=== PATIENT | female | born 1980 | race Caucasian/White ===

== ENCOUNTER 2017-08-13 11:28 | Emergency (ER) | payer SELFPAY ==
[~2017-08-13 11:28] MED LIST: AMIT10; AMOCLA875 PO; Augmentin 875-1 EACH PO; CRUTCH3 USE; CYCL10 PO; Cyclobenzaprine5 MG PO; ERYT.5TO OD; HYDACE5 PO; IBUP800 PO; MEDR10 PO; MELA3 PO; NAPR375 PO; NAPR500 PO; PROACE100 PO; PROM25 PO; RXHYDACE PO; VENL75ER; Zofran Odt4 MG SL
[2017-08-14] MEDS ORDERED: Pepcid20 MG PO (19:11)
[2017-08-14] MEDS ORDERED: Amoxicillin500 MG PO (19:11)
[2017-08-14] MEDS ORDERED: Zofran8 MG PO (19:11)
[2017-08-14] MEDS ORDERED: IBUP600 PO (19:11)
== END 2017-08-13 12:22 | disposition left against medical advice (07) ==
LOC: ER 11:28
DX: Z53.21 Procedure and treatment not carried out due to patient leaving prior to being seen by health care provider (principal)

== ENCOUNTER 2017-08-14 14:43 | Emergency (ER) | payer OTHER ==
[~2017-08-14] VITALS: Ht 170.2 cm; Wt 63.5 kg
[2017-08-14 15:48] LABS: BASOPHILS ABSOLUTE AUTO 0.06 K/mm3 (0.00-0.23); BASOPHILS PERCENT AUTO 1 % (0-2); EOSINOPHILS PERCENT AUTO 0 % (0-6); Hematocrit 46.6 % (33.0-51.0); Hemoglobin 15.4 g/dL (11.5-16.0); IMMATURE GRAN ABSOLUTE AUTO 0.03 K/mm3 (0.00-0.10); IMMATURE GRAN PERCENT AUTO 0 % (0-1); LYMPHOCYTES ABSOLUTE AUTO 1.71 K/mm3 (0.84-5.20); LYMPHOCYTES PERCENT AUTO 19 % (21-46); MONOCYTES ABSOLUTE AUTO 0.64 K/mm3 (0.16-1.47); MONOCYTES PERCENT AUTO 7 % (4-13); Mean Corpuscular HGB 30.6 pg (26.0-34.0); Mean Corpuscular Volume 93 fL (80-100); Mean Platelet Volume 9.9 fL (9.1-12.4); NEUTROPHILS ABSOLUTE AUTO 6.79 K/mm3 (1.96-9.15); NEUTROPHILS PERCENT AUTO 74 % (41-73); Platelet Count 268 K/mm3 (150-400); RDW Coefficient Variation 13.7 % (11.7-14.2); RDW Standard Deviation 46.4 fL (35.1-46.3); Red Blood Cell Count 5.03 M/mm3 (3.80-5.20); White Blood Cell Count 9.23 K/mm3 (4.00-11.30)
[2017-08-14 16:23] LABS: Alanine Aminotransfer (ALT/SGP 27 U/L (12-78); Alk Phos 80 U/L (50-136); Anion Gap 9 mmol/L (6-16); Aspartate Aminotrans (AST/SGOT 31 U/L (12-37); Bilirubin, Total 0.5 mg/dL (0.1-1.0); Blood Urea Nitrogen 9 mg/dL (8-24); Bun/Creatinine Ratio 12.9 (12.0-20.0); CO2, Blood 26 mmol/L (21-32); Calcium, Blood 8.6 mg/dL (8.5-10.1); Chloride, Blood 106 mmol/L (98-108); Glomerular Filtration Rate >60 (60-); Glucose, Blood 80 mg/dL (70-99); Potassium, Blood 3.6 mmol/L (3.5-5.5); Sodium, Blood 141 mmol/L (136-145)
[2017-08-14 16:38] LABS: Source, Urine Clean Catch
[2017-08-14 17:01] LABS: Bilirubin, Urine Neg (Neg); Blood, Urine Neg (Neg); Glucose Qualitative, Urine Neg (Neg); Ketones, Urine 2+ (Neg); Leukocyte Esterase, Urine 1+ (Neg); Nitrite, Urine Neg (Neg); Protein, Urine 1+ (Neg); Urobilinogen, Urine 1+ (Normal)
[2017-08-14 17:05] LABS: Appearance, Urine Clear (Clear); Color, Urine Yellow (P-Yellow)
[2017-08-14 17:06] LABS: Bacteria Rare /hpf; Red Blood Cells, Urine 0-2 /hpf (0-2); Squamous Epithelial Cells Rare /hpf (Few)
[2017-08-14] MEDS ORDERED: Pepcid20 MG PO (19:11)
[2017-08-14] MEDS ORDERED: IBUP600 PO (19:11)
[2017-08-14] MEDS ORDERED: Zofran8 MG PO (19:11)
[2017-08-14] MEDS ORDERED: Amoxicillin500 MG PO (19:11)
[2017-08-14 19:27] LABS: U Amphetamine Screen Not Detected; U Barbituate Screen Not Detected; U Benzodiazapine Screen Not Detected; U Buprenorphine Screen Not Detected; U Cannabinoids Screen DETECTED; U Cocaine Screen Not Detected; U Methadone Screen Not Detected; U Methamphetamine Screen Not Detected; U Opiates Screen Not Detected; U Oxycodone Screen Not Detected; U Phencyclidine Screen Not Detected; U Propoxyphene Screen Not Detected
== END 2017-08-14 19:35 | disposition home or self-care (01) ==
LOC: ER 14:43
PROVIDERS: Emergency Medicine; Physician Assistant
DX: R10.12 Left upper quadrant pain (principal); Z88.8 Allergy status to other drugs, medicaments and biological substances; F17.200 Nicotine dependence, unspecified, uncomplicated
CPT/HCPCS: 36415; 71046; 80053; 81001; 81025; 83690; 85025; 87086; 96361; 96374; 96375; 96376; 99284; G0480; J0696; J1170; J2405; J7030

== ENCOUNTER 2018-02-27 15:27 | Emergency (ER) | payer OTHER ==
[~2018-02-27] VITALS: Ht 170.2 cm; Wt 63.5 kg
[~2018-02-27 15:27] MED LIST changes: +Amoxicillin500 MG PO; +IBUP600 PO; +Pepcid20 MG PO; +Zofran8 MG PO
[2018-02-27] MEDS ORDERED: Amoxil400 MG/5 M PO (16:23)
== END 2018-02-27 16:34 | disposition home or self-care (01) ==
LOC: ER 15:27
DX: J02.0 Streptococcal pharyngitis (principal); F17.210 Nicotine dependence, cigarettes, uncomplicated; Z88.8 Allergy status to other drugs, medicaments and biological substances
CPT/HCPCS: 87430; 99282; J1100

== ENCOUNTER 2018-08-03 10:18 | Emergency (ER) | payer OTHER ==
[~2018-08-03] VITALS: Ht 170.2 cm; Wt 63.5 kg
[~2018-08-03 10:18] MED LIST changes: +Amoxil400 MG/5 M PO
[2018-08-03 10:55] LABS: PCO2 Arterial 27.3 mmHg (35-45); PO2 Arterial 105 mmHg (80-100)
== END 2018-08-03 12:51 ==
LOC: ER 10:18
PROVIDERS: Emergency Medicine
DX: T59.811A Toxic effect of smoke, accidental (unintentional), initial encounter (principal); J68.9 Unspecified respiratory condition due to chemicals, gases, fumes and vapors; R05 Cough; R07.89 Other chest pain; Z88.8 Allergy status to other drugs, medicaments and biological substances; F17.210 Nicotine dependence, cigarettes, uncomplicated
CPT/HCPCS: 36600; 71046; 82375; 82803; 93005; 93010; 99285-25

== ENCOUNTER 2018-10-19 08:04 | Emergency (ER) | payer OTHER ==
[~2018-10-19] VITALS: Ht 170.2 cm; Wt 65.8 kg
[2018-10-19 08:48] LABS: Source, Urine Clean Catch
[2018-10-19 08:55] LABS: Bilirubin, Urine Neg (Neg); Blood, Urine Neg (Neg); Glucose Qualitative, Urine Neg (Neg); Ketones, Urine Neg (Neg); Leukocyte Esterase, Urine Neg (Neg); Nitrite, Urine Neg (Neg); Protein, Urine Neg (Neg); Specific Gravity, Urine 1.005 (1.003-1.022); Urobilinogen, Urine NORM (Normal); pH, Urine 6.5 (5.0-8.0)
[2018-10-19 08:58] LABS: Appearance, Urine Clear (Clear); Color, Urine Pale Yellow (P-Yellow)
[2018-10-19 08:59] LABS: BASOPHILS ABSOLUTE AUTO 0.08 K/mm3 (0.00-0.23); BASOPHILS PERCENT AUTO 1 % (0-2); EOSINOPHILS PERCENT AUTO 0 % (0-6); Hematocrit 42.8 % (33.0-51.0); Hemoglobin 14.1 g/dL (11.5-16.0); IMMATURE GRAN ABSOLUTE AUTO 0.03 K/mm3 (0.00-0.10); IMMATURE GRAN PERCENT AUTO 0 % (0-1); LYMPHOCYTES ABSOLUTE AUTO 1.93 K/mm3 (0.84-5.20); LYMPHOCYTES PERCENT AUTO 26 % (21-46); MONOCYTES ABSOLUTE AUTO 0.66 K/mm3 (0.16-1.47); MONOCYTES PERCENT AUTO 9 % (4-13); Mean Corpuscular HGB 30.8 pg (26.0-34.0); Mean Corpuscular HGB Conc 32.9 g/dL (31.5-36.5); Mean Corpuscular Volume 93 fL (80-100); Mean Platelet Volume 10.5 fL (9.1-12.4); NEUTROPHILS ABSOLUTE AUTO 4.77 K/mm3 (1.96-9.15); NEUTROPHILS PERCENT AUTO 64 % (41-73); Platelet Count 259 K/mm3 (150-400); RDW Coefficient Variation 13.2 % (11.7-14.2); Red Blood Cell Count 4.58 M/mm3 (3.80-5.20); White Blood Cell Count 7.47 K/mm3 (4.00-11.30)
[2018-10-19 09:12] LABS: Alanine Aminotransfer (ALT/SGP 29 U/L (12-78); Albumin, Blood 3.8 g/dL (3.4-5.0); Albumin/Globulin Ratio 1.3 (0.8-1.8); Alk Phos 59 U/L (50-136); Anion Gap 4 mmol/L (6-16); Aspartate Aminotrans (AST/SGOT 21 U/L (12-37); Bilirubin, Total 0.2 mg/dL (0.1-1.0); Blood Urea Nitrogen 17 mg/dL (8-24); Bun/Creatinine Ratio 31.4 (12.0-20.0); CO2, Blood 25 mmol/L (21-32); Calcium, Blood 8.5 mg/dL (8.5-10.1); Chloride, Blood 111 mmol/L (98-108); Creatinine, Blood 0.54 mg/dL (0.40-1.00); Glomerular Filtration Rate >60 (60-); Glucose, Blood 102 mg/dL (70-99); Potassium, Blood 4.1 mmol/L (3.5-5.5); Sodium, Blood 140 mmol/L (136-145); Total Protein, Blood 6.8 g/dL (6.4-8.2)
[2018-10-19] MEDS ORDERED: Cipro500 MG PO (10:13)
[2018-10-19] MEDS ORDERED: Flagyl500 MG PO (10:13)
[2018-10-19] MEDS ORDERED: Ultram50 MG PO (10:20)
== END 2018-10-19 10:22 | disposition home or self-care (01) ==
LOC: ER 08:04
PROVIDERS: Emergency Medicine
DX: K52.9 Noninfective gastroenteritis and colitis, unspecified (principal); F17.210 Nicotine dependence, cigarettes, uncomplicated; Z88.8 Allergy status to other drugs, medicaments and biological substances
CPT/HCPCS: 74177; 80053; 81003; 83690; 85025; 96361-59; 96374-59; 96375-59; 99284-25; C9113; J2405; J7030; Q9967

== ENCOUNTER → 2019-01-08 | Outpatient (CLI) | payer OTHER ==
[~2019-01-08] MED LIST changes: +Cipro500 MG PO; +Flagyl500 MG PO; +Ultram50 MG PO
[2019-01-09 11:11] LABS: Adenovirus F 40/41 Not Detected (NOT DETECT); Astrovirus Not Detected (NOT DETECT); Campylobacter Sp Not Detected (NOT DETECT); Cryptosporidium Not Detected (NOT DETECT); Cyclospora Cayetanensis Not Detected (NOT DETECT); E. Coli O157 Not Detected (NOT DETECT); Entamoeba Histolytica Not Detected (NOT DETECT); Enteroaggregative E. coli-EAEC Not Detected (NOT DETECT); Enteropathogenic E. coli-EPEC Not Detected (NOT DETECT); Enterotoxigenic E. coli-ETEC Not Detected (NOT DETECT); Giardia Lamblia Not Detected (NOT DETECT); Norovirus GI/GII Not Detected (NOT DETECT); Plesiomonas Shigelloides Not Detected (NOT DETECT); Rotavirus A Not Detected (NOT DETECT); Salmonella Sp Not Detected (NOT DETECT); Sapovirus Not Detected (NOT DETECT); Shiga Toxin-prod E. coli-STEC Not Detected (NOT DETECT); Shigella/Enteroin E. coli-EIEC Not Detected (NOT DETECT); Vibrio Cholerae Not Detected (NOT DETECT); Vibrio Sp Not Detected (NOT DETECT); Yersinia Enterocolitica Not Detected (NOT DETECT)
== END | disposition home or self-care (01) ==
LOC: LAB SHORT 13:30 → LAB 13:30 → LAB FUT 12-15 16:35
PROVIDERS: Student in an Organized Health Care Education/Training Program
DX: R10.9 Unspecified abdominal pain (principal); R19.7 Diarrhea, unspecified
CPT/HCPCS: 87177; 87209; 87507

== ENCOUNTER 2019-01-09 08:34 | Day surgery (SDC) | payer OTHER ==
[~2019-01-09] VITALS: Ht 170.2 cm; Wt 69.2 kg
== END 2019-01-09 11:16 | disposition home or self-care (01) ==
LOC: ORSCSDS 08:34
PROVIDERS: Student in an Organized Health Care Education/Training Program
PROC: 0DBF8ZX Excision of Right Large Intestine, Via Natural or Artificial Opening Endoscopic, Diagnostic (ICD-10-PCS; principal; 2019-01-09 09:45)
PROC: 0DB98ZX Excision of Duodenum, Via Natural or Artificial Opening Endoscopic, Diagnostic (ICD-10-PCS; principal; 2019-01-09 09:45)
PROC: 0DB58ZX Excision of Esophagus, Via Natural or Artificial Opening Endoscopic, Diagnostic (ICD-10-PCS; principal; 2019-01-09 09:45)
PROC: 0DBB8ZX Excision of Ileum, Via Natural or Artificial Opening Endoscopic, Diagnostic (ICD-10-PCS; principal; 2019-01-09 09:45)
PROC: 0DB68ZX Excision of Stomach, Via Natural or Artificial Opening Endoscopic, Diagnostic (ICD-10-PCS; principal; 2019-01-09 09:45)
PROC: 0DBG8ZX Excision of Left Large Intestine, Via Natural or Artificial Opening Endoscopic, Diagnostic (ICD-10-PCS; principal; 2019-01-09 09:45)
DX: R10.9 Unspecified abdominal pain (principal); R19.7 Diarrhea, unspecified; K20.9 Esophagitis, unspecified; K29.70 Gastritis, unspecified, without bleeding; K64.8 Other hemorrhoids; K57.30 Diverticulosis of large intestine without perforation or abscess without bleeding; K44.9 Diaphragmatic hernia without obstruction or gangrene; K62.89 Other specified diseases of anus and rectum; F17.210 Nicotine dependence, cigarettes, uncomplicated
CPT/HCPCS: 88305; 88342; J2704; J7120

== ENCOUNTER → 2019-01-27 | Outpatient (CLI) | payer OTHER | END | disposition home or self-care (01) | LOC: LAB SHORT 14:22 → LAB 14:22 | DX: R10.9 Unspecified abdominal pain (principal); R19.7 Diarrhea, unspecified | CPT/HCPCS: 87493 ==

== ENCOUNTER 2020-04-15 08:39 | Day surgery (SDC) | payer OTHER ==
[~2020-04-15] VITALS: Ht 170.2 cm; Wt 74.1 kg
[~2020-04-15 08:39] MED LIST changes: +Carafate1 GM/10 ML PO; +Halcion0.25 MG PO; +ONDA4ODT MM; +Prilosec Otc20 MG PO
[2020-04-15] MEDS ORDERED: Children's15 MG/5 M2 PO (09:07)
--- NOTE | 2020-04-15 09:23 | NUR ---
04/15/20 0923 Kendy Alvarse FIRST IV IN RIGHT HAND BLEW VEIN SECOND IV IN RIGHT WRIST WORKED
== END 2020-04-15 10:45 | disposition home or self-care (01) ==
LOC: ORSCSDS 08:39
PROVIDERS: Student in an Organized Health Care Education/Training Program
PROC: 0DBP8ZX Excision of Rectum, Via Natural or Artificial Opening Endoscopic, Diagnostic (ICD-10-PCS; principal; 2020-04-15 10:00)
PROC: 0DBE8ZX Excision of Large Intestine, Via Natural or Artificial Opening Endoscopic, Diagnostic (ICD-10-PCS; principal; 2020-04-15 10:00)
DX: K52.9 Noninfective gastroenteritis and colitis, unspecified (principal); R19.7 Diarrhea, unspecified; R10.9 Unspecified abdominal pain; F17.210 Nicotine dependence, cigarettes, uncomplicated
CPT/HCPCS: 88305; J2704; J7120

== ENCOUNTER 2021-01-17 01:31 | Emergency (ER) | payer OTHER ==
[~2021-01-17] VITALS: Ht 170.2 cm; Wt 70.3 kg
[~2021-01-17 01:31] MED LIST changes: +Children's15 MG/5 M2 PO
[2021-01-17 03:47] LABS: BASOPHILS PERCENT AUTO 1 % (0-2); EOSINOPHILS PERCENT AUTO 0 % (0-6); Hematocrit 49.1 % (33.0-51.0); Hemoglobin 15.9 g/dL (11.5-16.0); IMMATURE GRAN ABSOLUTE AUTO 0.16 K/mm3 (0.00-0.10); IMMATURE GRAN PERCENT AUTO 1 % (0-1); LYMPHOCYTES ABSOLUTE AUTO 0.71 K/mm3 (0.84-5.20); LYMPHOCYTES PERCENT AUTO 4 % (21-46); MONOCYTES ABSOLUTE AUTO 1.33 K/mm3 (0.16-1.47); MONOCYTES PERCENT AUTO 7 % (4-13); Mean Corpuscular HGB 32.8 pg (26.0-34.0); Mean Corpuscular HGB Conc 32.4 g/dL (31.5-36.5); Mean Corpuscular Volume 101 fL (80-100); Mean Platelet Volume 10.9 fL (9.1-12.4); NEUTROPHILS ABSOLUTE AUTO 16.63 K/mm3 (1.96-9.15); NEUTROPHILS PERCENT AUTO 88 % (41-73); Platelet Count 305 K/mm3 (150-400); RDW Coefficient Variation 13.3 % (11.7-14.2); RDW Standard Deviation 49.9 fL (35.1-46.3); Red Blood Cell Count 4.85 M/mm3 (3.80-5.20); White Blood Cell Count 18.93 K/mm3 (4.00-11.30)
[2021-01-17 04:10] LABS: Alanine Aminotransfer (ALT/SGP 42 U/L (12-78); Albumin, Blood 5.3 g/dL (3.4-5.0); Albumin/Globulin Ratio 1.2 (0.8-1.8); Alk Phos 98 U/L (50-136); Anion Gap 23 mmol/L (6-16); Aspartate Aminotrans (AST/SGOT 41 U/L (12-37); Bilirubin, Total 0.8 mg/dL (0.1-1.0); Blood Urea Nitrogen 13 mg/dL (8-24); Bun/Creatinine Ratio 15.3 (12.0-20.0); CO2, Blood 8 mmol/L (21-32); Calcium, Blood 9.3 mg/dL (8.5-10.1); Chloride, Blood 103 mmol/L (98-108); Creatinine, Blood 0.85 mg/dL (0.40-1.00); Globulin, Blood 4.4 g/dL (2.2-4.0); Glomerular Filtration Rate >60 (60-); Glucose, Blood 156 mg/dL (70-99); Sodium, Blood 134 mmol/L (136-145); Total Protein, Blood 9.7 g/dL (6.4-8.2)
[2021-01-17 06:34] LABS: Troponin I <0.015 ng/mL (0.000-0.040)
[2021-01-17 08:49] LABS: U Amphetamine Screen Not Detected; U Barbituate Screen Not Detected; U Benzodiazapine Screen Not Detected; U Buprenorphine Screen Not Detected; U Cannabinoids Screen DETECTED; U Cocaine Screen Not Detected; U Methadone Screen Not Detected; U Methamphetamine Screen Not Detected; U Opiates Screen Not Detected; U Oxycodone Screen Not Detected; U Phencyclidine Screen Not Detected; U Propoxyphene Screen Not Detected
== END 2021-01-17 09:33 | disposition home or self-care (01) ==
LOC: ER 01:31
PROVIDERS: Emergency Medicine; Student in an Organized Health Care Education/Training Program
DX: E86.0 Dehydration (principal); R10.13 Epigastric pain; R11.2 Nausea with vomiting, unspecified; R50.9 Fever, unspecified; F17.210 Nicotine dependence, cigarettes, uncomplicated; Z79.899 Other long term (current) drug therapy; Z88.8 Allergy status to other drugs, medicaments and biological substances
CPT/HCPCS: 71260; 74177; 80053; 83690; 84484; 85025; 85379; 93005; 93010; 96374-59; 96375-59; 99284-25; J1200; J1790; J1885; J7030; Q9967

== ENCOUNTER 2021-01-28 07:06 | Day surgery (SDC) | payer OTHER ==
[~2021-01-28] VITALS: Ht 170.2 cm; Wt 74.9 kg
== END 2021-01-28 09:01 | disposition home or self-care (01) ==
LOC: ORSCSDS 07:06
PROVIDERS: Student in an Organized Health Care Education/Training Program
PROC: 0DB68ZX Excision of Stomach, Via Natural or Artificial Opening Endoscopic, Diagnostic (ICD-10-PCS; principal; 2021-01-28 08:15)
PROC: 0DB98ZX Excision of Duodenum, Via Natural or Artificial Opening Endoscopic, Diagnostic (ICD-10-PCS; principal; 2021-01-28 08:15)
PROC: 0DB58ZX Excision of Esophagus, Via Natural or Artificial Opening Endoscopic, Diagnostic (ICD-10-PCS; principal; 2021-01-28 08:15)
DX: K21.00 Gastro-esophageal reflux disease with esophagitis, without bleeding (principal); K57.30 Diverticulosis of large intestine without perforation or abscess without bleeding; K44.9 Diaphragmatic hernia without obstruction or gangrene; Z79.899 Other long term (current) drug therapy
CPT/HCPCS: 88305; 88312; 88342; J2704; J7120

== ENCOUNTER 2021-04-14 12:09 | Emergency (ER) | payer OTHER ==
[~2021-04-14] VITALS: Ht 170.2 cm; Wt 68.0 kg
[2021-04-14] MEDS ORDERED: PHENERGAN25 MG PR (13:04)
[2021-04-15] MEDS ORDERED: Ativan1 MG SL (17:02)
[2021-04-15] MEDS ORDERED: HYDHCL25 PO (17:02)
[2021-04-15] MEDS ORDERED: PHENERGAN25 MG PR (17:02)
== END 2021-04-14 13:06 | disposition home or self-care (01) ==
LOC: ER 12:09
DX: U07.1 COVID-19 (principal); Z88.8 Allergy status to other drugs, medicaments and biological substances; Z79.899 Other long term (current) drug therapy; F17.210 Nicotine dependence, cigarettes, uncomplicated
CPT/HCPCS: 99282

== ENCOUNTER 2021-04-15 09:42 | Emergency (ER) | payer OTHER ==
[~2021-04-15] VITALS: Ht 170.2 cm; Wt 68.0 kg
[~2021-04-15 09:42] MED LIST changes: +PHENERGAN25 MG PR
[2021-04-15 12:37] LABS: Anion Gap 20 mmol/L (6-16); Beta HCG, Quantitative, Serum <1 mIU/mL (0-3); Blood Urea Nitrogen 23 mg/dL (8-24); Bun/Creatinine Ratio 18.3 (12.0-20.0); CO2, Blood 13 mmol/L (21-32); Calcium, Blood 10.4 mg/dL (8.5-10.1); Chloride, Blood 99 mmol/L (98-108); Creatinine, Blood 1.26 mg/dL (0.40-1.00); Glomerular Filtration Rate 46 (60-); Glucose, Blood 164 mg/dL (70-99); Magnesium, Blood 2.7 mg/dL (1.6-2.4); Potassium, Blood 4.6 mmol/L (3.5-5.5); Sodium, Blood 132 mmol/L (136-145)
[2021-04-15 13:38] LABS: U Amphetamine Screen Not Detected; U Barbituate Screen Not Detected; U Benzodiazapine Screen Not Detected; U Buprenorphine Screen Not Detected; U Cannabinoids Screen DETECTED; U Cocaine Screen Not Detected; U Methadone Screen Not Detected; U Methamphetamine Screen Not Detected; U Opiates Screen Not Detected; U Oxycodone Screen Not Detected; U Phencyclidine Screen Not Detected; U Propoxyphene Screen Not Detected
[2021-04-15 15:00] LABS: Calcium, Ionized (POC) 1.15 mmol/L (1.10-1.46); Chloride (POC) 106 mmol/L (98-108); Creatinine (POC) 0.8 mg/dL (0.6-1.0); Glucose (ISTAT POC) 114 mg/dL (70-99); Hemoglobin (POC) 13.9 g/dL (12.0-16.0); Potassium (POC) 4.2 mmol/L (3.5-5.5); Sodium (POC) 136 mmol/L (135-148); Total CO2 (POC) 14 mmol/L (21-32)
[2021-04-15 15:22] LABS: Bicarbonate Venous 18.8 mmol/L (24.0-30.0); PCO2 Venous 24.7 mmHg (38-42); PO2 Venous 102 mmHg (38-42); pH Blood Venous 7.41 (7.34-7.37)
[2021-04-15 16:52] LABS: Anion Gap 13 mmol/L (6-16); Blood Urea Nitrogen 18 mg/dL (8-24); Bun/Creatinine Ratio 23.9 (12.0-20.0); CO2, Blood 16 mmol/L (21-32); Calcium, Blood 8.9 mg/dL (8.5-10.1); Chloride, Blood 107 mmol/L (98-108); Creatinine, Blood 0.75 mg/dL (0.40-1.00); Glomerular Filtration Rate >60 (60-); Glucose, Blood 110 mg/dL (70-99); Potassium, Blood 4.3 mmol/L (3.5-5.5); Sodium, Blood 136 mmol/L (136-145)
[2021-04-15] MEDS ORDERED: PHENERGAN25 MG PR (17:02)
[2021-04-15] MEDS ORDERED: HYDHCL25 PO (17:02)
[2021-04-15] MEDS ORDERED: Ativan1 MG SL (17:02)
== END 2021-04-15 17:30 | disposition home or self-care (01) ==
LOC: ER 09:42
PROVIDERS: Emergency Medicine
DX: R10.9 Unspecified abdominal pain (principal); R11.2 Nausea with vomiting, unspecified; U07.1 COVID-19; F17.210 Nicotine dependence, cigarettes, uncomplicated; Z88.8 Allergy status to other drugs, medicaments and biological substances; Z79.899 Other long term (current) drug therapy
CPT/HCPCS: 36415; 80047; 80048; 82803; 83735; 84702; 85014; 96374; 96375; 99284-25; J1200; J2060; J2405; J2765; J7030; J7120

== ENCOUNTER → 2021-10-31 | Outpatient (CLI) | payer OTHER ==
[~2021-10-31] MED LIST changes: +Ativan1 MG SL; +HYDHCL25 PO
[2021-11-04 05:11] LABS: COTININE Negative ng/mL (Cutoff=300)
== END | disposition home or self-care (01) ==
LOC: LAB 15:37 → LAB SHORT 15:37
PROVIDERS: Orthopaedic Surgery
DX: Z01.812 Encounter for preprocedural laboratory examination (principal); S83.511D Sprain of anterior cruciate ligament of right knee, subsequent encounter

== ENCOUNTER 2021-11-15 18:21 | Emergency (ER) | payer OTHER ==
[~2021-11-15] VITALS: Ht 170.2 cm; Wt 77.1 kg
== END 2021-11-15 21:43 | disposition home or self-care (01) ==
LOC: ER 18:21
DX: S92.344A Nondisplaced fracture of fourth metatarsal bone, right foot, initial encounter for closed fracture (principal); S92.334A Nondisplaced fracture of third metatarsal bone, right foot, initial encounter for closed fracture; F17.210 Nicotine dependence, cigarettes, uncomplicated; Z88.8 Allergy status to other drugs, medicaments and biological substances; Z79.899 Other long term (current) drug therapy
CPT/HCPCS: 29515; 73630; 99283-25; A9270

== ENCOUNTER 2021-12-24 08:51 | Day surgery (SDC) | payer OTHER ==
[~2021-12-24] VITALS: Ht 170.2 cm; Wt 74.3 kg
[2021-12-24] MEDS ORDERED: GABA300 PO (09:47)
[2021-12-24] MEDS ORDERED: TIZA4 PO (09:48)
[2021-12-24] MEDS ORDERED: Bentyl20 MG PO (09:48)
--- NOTE | 2021-12-24 11:07 | NUR ---
12/24/21 1107 Angle Burgess 1 MG EPI ADDED TO THE FIRST BAG OF LR FOR IRRIGATION PER ORDER. BUPIVACAINE 0.5% 30 MLS MIXED W/ EPI 0.25ML PER ORDER TO MAKE BUPIVACAINE 0.5% 1:200,000 FOR INJECTION AT OPSITE BY DR MARCELO.
--- NOTE | 2021-12-24 12:13 | NUR ---
12/24/21 1213 TJ VERNON 25MCG FENTANYL IV PUSH FOR PAIN 11/25
== END 2021-12-24 13:05 | disposition home or self-care (01) ==
LOC: ORSCSDS 08:51
PROVIDERS: Orthopaedic Surgery
PROC: 0SQC4ZZ Repair Right Knee Joint, Percutaneous Endoscopic Approach (ICD-10-PCS; principal; 2021-12-24 10:15)
DX: S83.241A Other tear of medial meniscus, current injury, right knee, initial encounter (principal); S83.511A Sprain of anterior cruciate ligament of right knee, initial encounter; Z79.899 Other long term (current) drug therapy; Z87.891 Personal history of nicotine dependence; Z86.16 Personal history of COVID-19
CPT/HCPCS: A9270; C1713; J0171; J0690; J1100; J1885; J2250; J2405; J2704; J3010; J7120

== ENCOUNTER 2022-04-01 08:03 | Day surgery (SDC) | payer OTHER ==
[~2022-04-01] VITALS: Ht 170.2 cm; Wt 80.7 kg
[~2022-04-01 08:03] MED LIST changes: +Bentyl20 MG PO; +GABA300 PO; +TIZA4 PO
--- NOTE | 2022-04-01 10:29 | NUR ---
04/01/22 1029 Angle Burgess 30 MG EPI USED TO SOAK PLEDGETS FOR PACKING PER ORDER.
--- NOTE | 2022-04-01 11:36 | NUR ---
04/01/22 1136 PRISCILLA MOSELEY PT UP TO BATHROOM TO VOID URINE/ SBA IN WC
== END 2022-04-01 12:30 | disposition home or self-care (01) ==
LOC: ORSCSDS 08:03
PROVIDERS: Otolaryngology
PROC: 0HN Skin and Breast, Release (ICD-10-PCS; principal; 2022-04-01 09:15)
DX: J34.89 Other specified disorders of nose and nasal sinuses (principal); Z87.891 Personal history of nicotine dependence; K21.9 Gastro-esophageal reflux disease without esophagitis; Z79.899 Other long term (current) drug therapy
CPT/HCPCS: J0171; J1100; J1885; J2405; J2704; J3010; J7040; J7120

== ENCOUNTER 2022-05-31 14:53 | Emergency (ER) | payer OTHER ==
[~2022-05-31] VITALS: Ht 170.2 cm; Wt 74.8 kg
== END 2022-05-31 16:24 | disposition home or self-care (01) ==
LOC: ER 14:53
DX: M25.561 Pain in right knee (principal); G89.29 Other chronic pain; F17.210 Nicotine dependence, cigarettes, uncomplicated; V89.2XXA Person injured in unspecified motor-vehicle accident, traffic, initial encounter
CPT/HCPCS: 73562-RT

== ENCOUNTER → 2022-10-09 | Outpatient (CLI) | payer OTHER ==
[2022-10-09 15:17] LABS: BASOPHILS ABSOLUTE AUTO 0.06 K/mm3 (0.00-0.23); BASOPHILS PERCENT AUTO 1 % (0-2); EOSINOPHILS ABSOLUTE AUTO 0.07 K/mm3 (0.00-0.68); EOSINOPHILS PERCENT AUTO 1 % (0-6); Hematocrit 43.2 % (33.0-51.0); IMMATURE GRAN ABSOLUTE AUTO 0.01 K/mm3 (0.00-0.10); IMMATURE GRAN PERCENT AUTO 0 % (0-1); LYMPHOCYTES ABSOLUTE AUTO 1.32 K/mm3 (0.84-5.20); LYMPHOCYTES PERCENT AUTO 27 % (21-46); MONOCYTES ABSOLUTE AUTO 0.44 K/mm3 (0.16-1.47); MONOCYTES PERCENT AUTO 9 % (4-13); Mean Corpuscular HGB 34.3 pg (26.0-34.0); Mean Corpuscular HGB Conc 34.7 g/dL (31.5-36.5); Mean Corpuscular Volume 99 fL (80-100); Mean Platelet Volume 11.3 fL (9.1-12.4); NEUTROPHILS ABSOLUTE AUTO 2.93 K/mm3 (1.96-9.15); NEUTROPHILS PERCENT AUTO 61 % (41-73); Platelet Count 211 K/mm3 (150-400); RDW Coefficient Variation 12.7 % (11.7-14.2); RDW Standard Deviation 46.5 fL (35.1-46.3); Red Blood Cell Count 4.37 M/mm3 (3.80-5.20); White Blood Cell Count 4.83 K/mm3 (4.00-11.30)
[2022-10-09 15:44] LABS: Albumin, Blood 4.1 g/dL (3.4-5.0); Albumin/Globulin Ratio 1.1 (0.8-1.8); Bilirubin, Total 0.8 mg/dL (0.1-1.0); Bun/Creatinine Ratio 14.8 (12.0-20.0); Creatinine, Blood 0.81 mg/dL (0.40-1.00); Globulin, Blood 3.6 g/dL (2.2-4.0); Potassium, Blood 3.8 mmol/L (3.5-5.5); Total Protein, Blood 7.7 g/dL (6.4-8.2)
== END | disposition home or self-care (01) ==
LOC: LAB SHORT 15:12 → LAB 15:12
PROVIDERS: Chiropractor
DX: R07.89 Other chest pain (principal)
CPT/HCPCS: 80053; 84484; 85025; 85379

== ENCOUNTER 2023-12-27 09:07 | Day surgery (SDC) | payer OTHER ==
[~2023-12-27] VITALS: Ht 170.2 cm; Wt 80.2 kg
[~2023-12-27 09:07] MED LIST changes: +Lactated Ringer's 1,000 ML IV ONE
[2023-12-27] MEDS ORDERED: CeFAZolin Sodium 2,000 MG VIAL ONE (09:47)
[2023-12-27] MEDS ORDERED: NS 50 ML IV ONE (09:48)
[2023-12-27] MEDS ORDERED: Bupivacaine 0.5% HCl 5 MG/ML 30MLVIAL ONE (09:59)
[2023-12-27] MEDS ORDERED: FentaNYL Citrate 50 MCG/ML 2 ML Injection ONE ×4 (10:00→14:52)
[2023-12-27] MEDS ORDERED: Midazolam HCl 1MG / ML 2ML Vial ONE (10:00)
[2023-12-27] MEDS ORDERED: CARB100ER (10:06)
[2023-12-27] MEDS ORDERED: Lactated Ringer's 1,000 ML IV ONE (10:14)
[2023-12-27] MEDS ORDERED: propofoL 20 ML IV ONE (11:19)
--- NOTE | 2023-12-27 11:19 | NUR ---
12/27/[address] PERFORMED A NERVE BLOCK, PT ON 3L VIA NC, PULSE OX MONITORING OXYGEN SATURATION. OXYGEN SAT WNL. PT HERE FOR R ACL RECONSTRUCTION WITH QUAD ALLOGRAFT. START TIME FOR NERVE BLOCK AT 1049, END TIME AT 1053. PT TOLERATED BLOCK WELL.
[2023-12-27] MEDS ORDERED: Lidocaine 1%-Epineph 1:100000 20 ML MDV INJ ONE (11:40)
[2023-12-27] MEDS ORDERED: EPINEPhrine HCl 1 MG/ML 1ML Amp XX ONE (11:40)
[2023-12-27] MEDS ORDERED: propofoL 40 ML IV ONE (11:44)
--- NOTE | 2023-12-27 11:55 | NUR ---
12/27/23 Indiana Esparza 1MG OF EPI (1MG/ML) ADDED TO EACH OF THE FIRST 3 BAGS OF LR FOR IRRIGATION AT THE [facility] BY DR VENTURA. 3MG OF EPI TOTAL.
[2023-12-27] MEDS ORDERED: Ondansetron HCl 2 MG / ML 2ML Vial ONE (14:22)
[2023-12-27] MEDS ORDERED: Dexamethasone Sod Phos 10 MG/ML 1ML VIAL ONE (14:22)
[2023-12-27] MEDS ORDERED: OxyCODONE HCL 5 MG TAB ONE (14:29)
[2023-12-27] MEDS ORDERED: HYDROmorphone HCl/Pf 1MG SYR ONE (14:29)
--- NOTE | 2023-12-27 14:42 | NUR ---
12/27/23 1442 Rosanna Campbell PAIN MEDICINE GIVEN BY ANSON BRAVO. PATIENT ASSISTED TO BR WITHOUT ISSUE.
[2023-12-27 14:59] VITALS: BP 137/88
== END 2023-12-27 15:35 | disposition home or self-care (01) ==
LOC: ORSCSDS 09:07
PROVIDERS: Orthopaedic Surgery Sports Medicine
PROC: 0MRN4KZ Replacement of Right Knee Bursa and Ligament with Nonautologous Tissue Substitute, Percutaneous Endoscopic Approach (ICD-10-PCS; principal; 2023-12-27 10:30)
DX: S83.511A Sprain of anterior cruciate ligament of right knee, initial encounter (principal); M23.221 Derangement of posterior horn of medial meniscus due to old tear or injury, right knee; M25.561 Pain in right knee; F17.210 Nicotine dependence, cigarettes, uncomplicated; Z79.899 Other long term (current) drug therapy; Z86.16 Personal history of COVID-19
CPT/HCPCS: A9270; C1713; C1889; J0171; J0690; J1100; J1170; J2250; J2405; J2704; J3010; J7120

== ENCOUNTER 2024-06-13 14:07 | Emergency (ER) | payer OTHER ==
[~2024-06-13] VITALS: Ht 170.2 cm; Wt 72.6 kg
[~2024-06-13 14:07] MED LIST changes: +CARB100ER; -Lactated Ringer's 1,000 ML IV ONE
[2024-06-13 14:54] VITALS: BP 171/100
[2024-06-13 15:45] LABS: BASOPHILS ABSOLUTE AUTO 0.06 K/mm3 (0.00-0.23); BASOPHILS PERCENT AUTO 1 % (0-2); EOSINOPHILS ABSOLUTE AUTO 0.35 K/mm3 (0.00-0.68); EOSINOPHILS PERCENT AUTO 5 % (0-6); Hematocrit 36.1 % (33.0-51.0); Hemoglobin 11.7 g/dL (11.5-16.0); IMMATURE GRAN ABSOLUTE AUTO 0.02 K/mm3 (0.00-0.10); IMMATURE GRAN PERCENT AUTO 0 % (0-1); LYMPHOCYTES ABSOLUTE AUTO 1.46 K/mm3 (0.84-5.20); LYMPHOCYTES PERCENT AUTO 21 % (21-46); MONOCYTES ABSOLUTE AUTO 0.55 K/mm3 (0.16-1.47); MONOCYTES PERCENT AUTO 8 % (4-13); Mean Corpuscular HGB 29.7 pg (26.0-34.0); Mean Corpuscular HGB Conc 32.4 g/dL (31.5-36.5); Mean Corpuscular Volume 92 fL (80-100); Mean Platelet Volume 10.3 fL (9.1-12.4); NEUTROPHILS ABSOLUTE AUTO 4.42 K/mm3 (1.96-9.15); NEUTROPHILS PERCENT AUTO 64 % (41-73); Platelet Count 215 K/mm3 (150-400); RDW Coefficient Variation 15.5 % (11.7-14.2); RDW Standard Deviation 52.5 fL (35.1-46.3); Red Blood Cell Count 3.94 M/mm3 (3.80-5.20); White Blood Cell Count 6.86 K/mm3 (4.00-11.30)
[2024-06-13 16:07] LABS: Albumin, Blood 4.1 g/dL (3.4-5.0); Albumin/Globulin Ratio 1.1 (0.8-1.8); Bilirubin, Total 0.5 mg/dL (0.1-1.0); Bun/Creatinine Ratio 11.4 (12.0-20.0); Calcium, Blood 9.4 mg/dL (8.5-10.1); Creatinine, Blood 0.61 mg/dL (0.40-1.00); Globulin, Blood 3.7 g/dL (2.2-4.0); Potassium, Blood 3.2 mmol/L (3.5-5.5); Total Protein, Blood 7.8 g/dL (6.4-8.2)
== END 2024-06-13 18:20 | disposition left against medical advice (07) ==
LOC: ER 14:07
PROVIDERS: Physician Assistant
DX: R10.84 Generalized abdominal pain (principal); Z53.29 Procedure and treatment not carried out because of patient's decision for other reasons
CPT/HCPCS: 74177; 80053; 83690; 84703; 85025; 99282-25; Q9967